=== PATIENT | female | born 1950 | race Caucasian/White ===

== ENCOUNTER → 2018-02-27 | Outpatient (CLI) | payer MEDICARE, OTHER | END | disposition home or self-care (01) | LOC: CFH 08:37 | PROVIDERS: ATTEND Family Medicine | DX: I34.1 Nonrheumatic mitral (valve) prolapse (principal); I35.0 Nonrheumatic aortic (valve) stenosis; I35.8 Other nonrheumatic aortic valve disorders; I34.8 Other nonrheumatic mitral valve disorders | CPT/HCPCS: 93306 ==

== ENCOUNTER → 2020-02-09 | Outpatient (CLI) | payer MEDICARE, OTHER ==
[~2020-02-09] MED LIST: ESTR0.5T PO; FAMC250T3 PO; TOPI25TA32 PO
== END | disposition home or self-care (01) ==
LOC: STAR 10:55
PROVIDERS: ATTEND Surgery
DX: Z01.818 Encounter for other preprocedural examination (principal); Z20.828 Contact with and (suspected) exposure to other viral communicable diseases; C50.812 Malignant neoplasm of overlapping sites of left female breast
CPT/HCPCS: 36415; 87635; 93005

== ENCOUNTER 2020-02-13 09:00 | Day surgery (SDC) | payer MEDICARE, OTHER ==
[~2020-02-13] VITALS: Ht 170.2 cm; Wt 56.5 kg
[2020-02-13] MEDS ORDERED: LACTATED RINGERS 1,000 ML IV SCH (09:25)
[2020-02-13 09:27] VITALS: BP 129/71
[2020-02-13] MEDS ORDERED: CHLORHEXIDINE 15 ML UDC MM ONE (09:30)
[2020-02-13] MEDS ORDERED: FENTANYL PF 250 MCG/5ML ONE (11:07)
[2020-02-13] MEDS ORDERED: ONDANSETRON 2MG/ML, 2ML ONE (11:08)
[2020-02-13] MEDS ORDERED: GLYCOPYRROLATE 0.2MG/1ML, 5ML ONE (11:08)
[2020-02-13] MEDS ORDERED: DEXAMETHASONE 4 MG/ML, 1ML ONE (11:08)
[2020-02-13] MEDS ORDERED: CEFAZOLIN 1,000 MG ONE (11:08)
[2020-02-13] MEDS ORDERED: ROCURONIUM 10MG/ML,5ML ONE (11:08)
[2020-02-13] MEDS ORDERED: NEOSTIGMINE 1 MG/ML, 10ML ONE (11:08)
[2020-02-13] MEDS ORDERED: PROPOFOL 10 MG/ML, 20ML ONE (11:08)
[2020-02-13] MEDS ORDERED: BUPIVACAINE/EPI 0.5% 1:200K ONE (11:25)
[2020-02-13] MEDS ORDERED: ISOSULFAN BLUE 10 MG/ML, 5ML IV ONE (11:25)
[2020-02-13] MEDS ORDERED: hydrALAzine 20 MG/ML, 1ML IV PRN (12:00)
[2020-02-13] MEDS ORDERED: PROMETHAZINE 25 MG/ML, 1ML IVPush PRN (12:00)
[2020-02-13] MEDS ORDERED: OXYcodone 5 MG/5 ML ORAL.SOL UDC PO PRN (12:00)
[2020-02-13] MEDS ORDERED: MEPERIDINE/PF 25MG/0.5ML IVPush PRN (12:00)
[2020-02-13] MEDS ORDERED: LABETALOL 5MG/ML, 20ML IV PRN (12:00)
[2020-02-13] MEDS ORDERED: morphine SULFATE 10 MG/ML, 1ML IVPush PRN (12:00)
[2020-02-13] MEDS ORDERED: HYDROmorphone 1 MG/ML, 1ML INJ IVPush PRN (12:00)
[2020-02-13] MEDS ORDERED: HALOPERIDOL 5 MG/ML IV PRN (12:00)
[2020-02-13] MEDS ORDERED: ACETAMINOPHEN 325 MG TABLET PO PRN (12:00)
[2020-02-13] MEDS ORDERED: BUPIVACAINE/PF-EPI 0.5% 1:200K INFIL ONE (13:01)
[2020-02-13] MEDS ORDERED: OXYcodone 5 MG/5 ML ORAL.SOL UDC ONE (13:51)
[2020-02-13] MEDS ORDERED: FENTANYL PF 100 MCG/2ML ONE ×2 (13:52→14:23)
[2020-02-13] MEDS: FENTANYL PF 100 MCG/2ML IV PRN ×3 (13:56→14:20)
== END 2020-02-13 16:20 | disposition home or self-care (01) ==
LOC: OR 09:00 → OUT 16:20
PROVIDERS: ATTEND Surgery
DX: C50.812 Malignant neoplasm of overlapping sites of left female breast (principal); G43.909 Migraine, unspecified, not intractable, without status migrainosus; I34.1 Nonrheumatic mitral (valve) prolapse; I47.1 Supraventricular tachycardia; M19.90 Unspecified osteoarthritis, unspecified site; Z17.0 Estrogen receptor positive status [ER+]; Z79.1 Long term (current) use of non-steroidal anti-inflammatories (NSAID); Z79.899 Other long term (current) drug therapy; Z85.828 Personal history of other malignant neoplasm of skin; Z82.49 Family history of ischemic heart disease and other diseases of the circulatory system; Z80.9 Family history of malignant neoplasm, unspecified
CPT/HCPCS: 19281; 19301; 38525; 38792; 76098; 88305; 88307; 88333; 88334; A9541; J0690; J1100; J2405; J2704; J2710; J3010; J3490; J7120

== ENCOUNTER → 2020-03-26 | Outpatient (CLI) | payer MEDICARE, OTHER | END | disposition home or self-care (01) | LOC: STAR 10:07 | PROVIDERS: ATTEND Anesthesiology | DX: Z01.812 Encounter for preprocedural laboratory examination (principal); Z20.828 Contact with and (suspected) exposure to other viral communicable diseases | CPT/HCPCS: 36415; 87635 ==

== ENCOUNTER 2020-03-31 07:38 | Day surgery (SDC) | payer MEDICARE, OTHER ==
[~2020-03-31] VITALS: Ht 170.2 cm; Wt 56.9 kg
[2020-03-31] MEDS ORDERED: ONDANSETRON 2MG/ML, 2ML IVPush PRN (08:00)
[2020-03-31] MEDS ORDERED: HYDROmorphone 1 MG/ML, 1ML INJ IVPush PRN (08:00)
[2020-03-31] MEDS ORDERED: LABETALOL 5MG/ML, 20ML IV PRN (08:00)
[2020-03-31] MEDS ORDERED: OXYcodone 5 MG/5 ML ORAL.SOL UDC PO PRN (08:00)
[2020-03-31] MEDS ORDERED: FENTANYL PF 100 MCG/2ML IV PRN (08:00)
[2020-03-31] MEDS ORDERED: EPHEDRINE 50 MG/ML, 1ML IVPush PRN (08:00)
[2020-03-31] MEDS ORDERED: MEPERIDINE/PF 25MG/0.5ML IVPush PRN (08:00)
[2020-03-31] MEDS ORDERED: hydrALAzine 20 MG/ML, 1ML IV PRN (08:00)
[2020-03-31] MEDS ORDERED: PROMETHAZINE 25 MG/ML, 1ML IVPush PRN (08:00)
[2020-03-31] MEDS ORDERED: CHLORHEXIDINE 15 ML UDC ONE (08:29)
[2020-03-31] MEDS ORDERED: PLEASE ENTER HEIGHT AND WEIGHT MC SCH (08:30)
[2020-03-31] MEDS ORDERED: ISOSULFAN BLUE 10 MG/ML, 5ML IV ONE (08:39)
[2020-03-31] MEDS ORDERED: EPINEPHRINE 1 MG/ML, 1ML ONE (08:39)
[2020-03-31] MEDS ORDERED: BUPIVACAINE/PF 0.5% ONE (08:39)
[2020-03-31 08:45] VITALS: BP 124/83
[2020-03-31] MEDS ORDERED: LACTATED RINGERS 1,000 ML IV SCH (09:00)
[2020-03-31] MEDS ORDERED: CHLORHEXIDINE 15 ML UDC MM ONE (09:00)
[2020-03-31] MEDS ORDERED: ACETAMINOPHEN 500 MG TABLET PO ONE (09:00)
[2020-03-31] MEDS ORDERED: FENTANYL PF 100 MCG/2ML ONE (10:18)
[2020-03-31] MEDS ORDERED: MIDAZOLAM 1 MG/ML, 2ML ONE (10:19)
[2020-03-31] MEDS ORDERED: SODIUM CHLORIDE 0.9% PF 10ML ONE (10:29)
[2020-03-31] MEDS ORDERED: KETOROLAC 30 MG/1 ML ONE (10:29)
[2020-03-31] MEDS ORDERED: LIDOCAINE-MPF 2% ,5ML ONE (10:29)
[2020-03-31] MEDS ORDERED: GLYCOPYRROLATE 0.2MG/1ML, 5ML ONE (10:40)
[2020-03-31] MEDS ORDERED: PROPOFOL 10 MG/ML, 20ML ONE (10:44)
[2020-03-31] MEDS ORDERED: CEFAZOLIN 1,000 MG ONE (10:44)
[2020-03-31] MEDS ORDERED: ONDANSETRON 2MG/ML, 2ML ONE (10:44)
[2020-03-31] MEDS ORDERED: DEXAMETHASONE 4 MG/ML, 1ML ONE (10:44)
[2020-03-31] MEDS ORDERED: EPHEDRINE 50 MG/ML, 1ML ONE (10:56)
== END 2020-03-31 12:40 | disposition home or self-care (01) ==
LOC: OUT 07:38
PROVIDERS: ATTEND Surgery
DX: C50.212 Malignant neoplasm of upper-inner quadrant of left female breast (principal); L92.8 Other granulomatous disorders of the skin and subcutaneous tissue; M19.90 Unspecified osteoarthritis, unspecified site; Z85.828 Personal history of other malignant neoplasm of skin; Z79.899 Other long term (current) drug therapy; Z72.89 Other problems related to lifestyle; Z82.49 Family history of ischemic heart disease and other diseases of the circulatory system
CPT/HCPCS: 19301; 88305; 88307; J0171; J0690; J1100; J1885; J2250; J2405; J2704; J3010; J7120

== ENCOUNTER → 2020-07-16 | Outpatient (CLI) | payer MEDICARE, OTHER | END | disposition home or self-care (01) | LOC: CFH 14:35 | PROVIDERS: ATTEND Internal Medicine Cardiovascular Disease | DX: I08.0 Rheumatic disorders of both mitral and aortic valves (principal); I47.1 Supraventricular tachycardia; Z85.3 Personal history of malignant neoplasm of breast | CPT/HCPCS: 93306 ==